=== PATIENT | female | born 1960 | race Caucasian/White ===

== ENCOUNTER 2017-06-21 10:17 | Emergency (ER) | payer MEDICAID ==
[~2017-06-21] VITALS: Ht 154.9 cm; Wt 69.4 kg
[~2017-06-21 10:17] MED LIST: ARIP10TA33 PO; SERT100T5 PO; TRAZ100T15 PO
[2017-06-21 10:21] VITALS: BP 104/69
== END 2017-06-21 11:08 | disposition home or self-care (01) ==
LOC: ED 11:02
DX: S01.81XD Laceration without foreign body of other part of head, subsequent encounter (principal); X58.XXXD Exposure to other specified factors, subsequent encounter
CPT/HCPCS: 99281